=== PATIENT | female | born 1995 | race Caucasian/White ===

== ENCOUNTER 2020-03-31 21:18 | Inpatient (IN) | payer BC ==
[2020-03-30] MEDS: LACTATED RINGERS 1,000 ML IV SCH
[~2020-03-31] VITALS: Ht 154.9 cm; Wt 86.0 kg
[2020-03-31 20:30] VITALS: BP 131/83
[~2020-03-31 21:18] MED LIST: DOCU-131 PO; HYDR-3240 PO; IBUP-1222 PO
[2020-03-31] MEDS ORDERED: D5%-LACTATED RINGERS 1,000 ML IV SCH (21:35)
[2020-03-31] MEDS ORDERED: OXYTOCIN 30U/ 0.9% NaCL 500ML 500 ML IV ONE (21:35)
[2020-03-31] MEDS ORDERED: OXYTOCIN 30U/ 0.9% NaCL 500ML 500 ML ONE (21:36)
[2020-03-31] MEDS ORDERED: LIDOCAINE 1%, 20ML ONE (21:37)
[2020-03-31] MEDS ORDERED: FENTANYL/BUPIV./NS/PF 250 ML EPIDCONT SCH ×2 (21:37→22:56)
[2020-03-31] MEDS: LACTATED RINGERS 1,000 ML IV SCH ×3 (21:45→23:35)
[2020-03-31] MEDS ORDERED: ONDANSETRON 2MG/ML, 2ML IVPush PRN (22:00)
[2020-03-31] MEDS ORDERED: TERBUTALINE 1 MG/ML, 1ML IVPush PRN (22:00)
[2020-03-31] MEDS ORDERED: FENTANYL PF 100 MCG/2ML IV PRN (22:00)
[2020-03-31] MEDS ORDERED: PLEASE ENTER HEIGHT AND WEIGHT MC SCH (22:00)
[2020-03-31] MEDS ORDERED: FENTANYL PF 100 MCG/2ML IVPush PRN (22:00)
[2020-03-31] MEDS ORDERED: TERBUTALINE 1 MG/ML, 1ML SQ PRN (22:00)
[2020-03-31] MEDS ORDERED: FENTANYL PF 500 MCG, BUPIVACAINE/PF 0.5%, 30ML 62.5 ML in SODIUM CHLORIDE 0.9% 177.5 ML EPIDCONT SCH (22:00)
[2020-03-31 22:08] LABS: BASOPHILS # (AUTO) 0.01 x10^3/uL (0-0.1); BASOPHILS % (AUTO) 0 % (0-1); EOSINOPHILS % (AUTO) 1 % (1-7); LYMPHOCYTES # (AUTO) 2.45 x10^3/uL (1-3.4); LYMPHOCYTES % (AUTO) 26 % (22-44); MD NO; MEAN CORPUSCULAR HEMOGLOBIN 29.1 pg (27.0-34.8); MEAN CORPUSCULAR HGB CONC 33.2 g/dL (32.4-35.8); MEAN CORPUSCULAR VOLUME 87.7 fL (80-100); MEAN PLATELET VOLUME 8.4 fL (7.4-10.4); MONOCYTES # (AUTO) 0.52 x10^3/uL (0.2-0.8); MONOCYTES % (AUTO) 5 % (2-9); NEUTROPHILS # (AUTO) 6.51 x10^3/uL (1.8-6.8); NEUTROPHILS % (AUTO) 68 % (42-75); PLATELET COUNT 221 x10^3/uL (130-400); RED BLOOD COUNT 3.74 x10^6/uL (3.82-5.3); RED CELL DISTRIBUTION WIDTH 13.8 % (9.6-15.2)
[2020-03-31] MEDS ORDERED: BUPIVACAINE 0.25% ONE (22:58)
[2020-03-31] MEDS ORDERED: NALOXONE 0.4 MG/ML, 1ML IVPush PRN (23:00)
[2020-03-31] MEDS ORDERED: LACTATED RINGERS 1,000 ML IVBOLUS PRN (23:00)
[2020-03-31] MEDS ORDERED: EPHEDRINE 50 MG/ML, 1ML IVPush PRN (23:00)
[2020-03-31] MEDS ORDERED: TERBUTALINE 1 MG/ML, 1ML ONE (23:32)
[2020-03-31] MEDS ORDERED: EPHEDRINE 50 MG/ML, 1ML ONE (23:37)
[2020-04-01] MEDS ORDERED: PROMETHAZINE 25 MG/ML, 1ML IV PRN
[2020-04-01] MEDS ORDERED: MIDAZOLAM 1 MG/ML, 2ML IV PRN
[2020-04-01] MEDS ORDERED: ALBUTEROL SULFATE 2.5 MG/3 ML NPPB PRN
[2020-04-01] MEDS ORDERED: HYDROcodone/APAP 7.5-325MG/15ML UDC PO PRN
[2020-04-01] MEDS ORDERED: MEPERIDINE/PF 25MG/0.5ML IVPush PRN
[2020-04-01] MEDS ORDERED: EPHEDRINE 50 MG/ML, 1ML IVPush PRN
[2020-04-01] MEDS ORDERED: OXYcodone 5 MG/5 ML ORAL.SOL UDC PO PRN
[2020-04-01] MEDS ORDERED: FENTANYL PF 100 MCG/2ML IV PRN
[2020-04-01] MEDS ORDERED: hydrALAzine 20 MG/ML, 1ML IV PRN
[2020-04-01] MEDS ORDERED: LABETALOL 5MG/ML, 20ML IV PRN
[2020-04-01] MEDS ORDERED: ONDANSETRON 2MG/ML, 2ML IVPush PRN
[2020-04-01] MEDS ORDERED: HYDROmorphone 2 MG/ML, 1ML IVPush PRN
[2020-04-01] MEDS ORDERED: METOPROLOL 1 MG/ML, 5ML IV PRN
[2020-04-01] MEDS: OXYTOCIN 30U/ 0.9% NaCL 500ML 500 ML IV SCH ×3 (02:26→22:25)
[2020-04-01] MEDS ORDERED: ACETAMINOPHEN 325 MG TABLET PO PRN (03:00)
[2020-04-01] MEDS ORDERED: MISOPROSTOL 200 MCG TABLET PR PRN (03:00)
[2020-04-01] MEDS ORDERED: RHOGAM FROM BLOOD BANK 1 NOTE EA IM/IV ONE (03:00)
[2020-04-01] MEDS ORDERED: BISACODYL 10 MG SUPP PR PRN (03:00)
[2020-04-01] MEDS ORDERED: HYDROcodone/APAP 5/325 TABLET PO PRN (03:00)
[2020-04-01] MEDS ORDERED: ONDANSETRON 2MG/ML, 2ML IV PRN (03:00)
[2020-04-01] MEDS ORDERED: OXYTOCIN 30U/ 0.9% NaCL 500ML 500 ML ONE (03:11)
[2020-04-01 04:50] VITALS: BP 116/74
[2020-04-01] MEDS: IBUPROFEN 800 MG TABLET PO PRN ×2 (05:19→20:15)
[2020-04-01] MEDS: OXYcodone/APAP 5/325MG TABLET PO PRN ×3 (05:20→23:44)
[2020-04-01 08:02] VITALS: BP 112/67
[2020-04-01] MEDS: PRENATAL VIT/IRON/FA 1 EACH TABLET PO SCH (09:24)
[2020-04-01] MEDS: DOCUSATE 100 MG CAPSULE PO PRN ×2 (09:24→20:17)
[2020-04-01 10:31] LABS: BASOPHILS # (AUTO) 0.04 x10^3/uL (0-0.1); BASOPHILS % (AUTO) 0 % (0-1); EOSINOPHILS # (AUTO) 0.02 x10^3/uL (0-0.4); EOSINOPHILS % (AUTO) 0 % (1-7); LYMPHOCYTES % (AUTO) 20 % (22-44); MD NO; MEAN CORPUSCULAR HEMOGLOBIN 29.2 pg (27.0-34.8); MEAN CORPUSCULAR HGB CONC 32.9 g/dL (32.4-35.8); MEAN CORPUSCULAR VOLUME 88.7 fL (80-100); MONOCYTES # (AUTO) 0.63 x10^3/uL (0.2-0.8); MONOCYTES % (AUTO) 5 % (2-9); NEUTROPHILS # (AUTO) 9.57 x10^3/uL (1.8-6.8); NEUTROPHILS % (AUTO) 75 % (42-75); PLATELET COUNT 221 x10^3/uL (130-400); RED BLOOD COUNT 3.35 x10^6/uL (3.82-5.3); RED CELL DISTRIBUTION WIDTH 14.5 % (9.6-15.2)
[2020-04-01 12:30] VITALS: BP 118/76
[2020-04-01 20:15] VITALS: BP 119/76
[2020-04-01 23:46] VITALS: BP 127/79
[2020-04-02 07:00] VITALS: BP 109/73
[2020-04-02] MEDS: DOCUSATE 100 MG CAPSULE PO PRN (08:39)
[2020-04-02] MEDS: PRENATAL VIT/IRON/FA 1 EACH TABLET PO SCH (08:39)
[2020-04-02] MEDS ORDERED: OXYC-302 PO (08:42)
[2020-04-02] MEDS ORDERED: IBUP-1223 PO (08:43)
== END 2020-04-02 10:05 | disposition home or self-care (01) | DRG 807 ==
LOC: LDOP 21:18 → LDIP 21:42 → 2NW 04-01 04:39
PROVIDERS: ADMIT Obstetrics & Gynecology; ATTEND Obstetrics & Gynecology
PROC: 10E0XZZ Delivery of Products of Conception, External Approach (ICD-10-PCS; principal; 2020-04-01)
PROC: 0HQ9XZZ Repair Perineum Skin, External Approach (ICD-10-PCS; 2020-04-01)
PROC: 00HU33Z Insertion of Infusion Device into Spinal Canal, Percutaneous Approach (ICD-10-PCS; 2020-04-01)
PROC: 3E0R3BZ Introduction of Anesthetic Agent into Spinal Canal, Percutaneous Approach (ICD-10-PCS; 2020-04-01)
DX: O69.81X0 Labor and delivery complicated by cord around neck, without compression, not applicable or unspecified (principal); Z37.0 Single live birth; O99.344 Other mental disorders complicating childbirth; F43.10 Post-traumatic stress disorder, unspecified; Z3A.39 39 weeks gestation of pregnancy; Z82.49 Family history of ischemic heart disease and other diseases of the circulatory system; Z87.891 Personal history of nicotine dependence; F32.9 Major depressive disorder, single episode, unspecified; O70.0 First degree perineal laceration during delivery; O71.82 Other specified trauma to perineum and vulva
CPT/HCPCS: 36415; S0020; 85025; 86592; 86850; 86900; G0378; J3010; J2590; J7050; J7120